=== PATIENT | male | born 1970 | race Caucasian/White ===

== ENCOUNTER 2017-07-20 16:45 | Emergency (ER) | payer BC, OTHER ==
[~2017-07-20] VITALS: Ht 172.7 cm; Wt 101.3 kg
[2017-07-20 16:47] VITALS: TEMP 36.3; Ht 172.7 cm; Wt 101.3 kg
[2017-07-20] MEDS ORDERED: PHEN-622 PO (16:55)
[2017-07-20] MEDS ORDERED: LIDOCAINE/EPINEPH/TETRACAINE 1 EA SYR EXT STA (17:04)
--- NOTE | 2017-07-20 17:08 | EMERGENCY ROOM VISIT NOTE ---
ED Visit Note First contact with patient: 16:51 CHIEF COMPLAINT: Facial laceration HISTORY OF PRESENT ILLNESS: This 47-year-old male patient presents emergency department, ambulatory, complaining of a laceration to the forehead. The patient was cutting down trees, and did not realize there was a branch above him. The limb fell several feet, striking him on the anterior forehead. The incident occurred approximately 1 hour ago. There was no loss of consciousness, vomiting, or unusual behavior afterwards. The patient does report some left neck stiffness, but denies any cervical spine pain. No headache, nausea, or blurred vision. There is minimal active bleeding. The patient rates the pain as sharp and 1/10. The patient's last tetanus vaccination was in 2010. REVIEW OF SYSTEMS: A 6 system review of systems was completed with positives and pertinent negatives listed in the HPI. ALLERGIES: None MEDICATIONS: DayQuil PMH: History of Hodgkin's lymphoma, the patient has been in remission for 5 years SOCIAL HISTORY: The patient lives locally with family. He denies drug, alcohol use. He admits to using chewing tobacco, one can every 3 days. PHYSICAL EXAM: Vital Signs: Reviewed Nurse's notes, vital signs stable. GENERAL : This is a 47-year-old white male, in no acute distress, well-developed, well- nourished. NEURO: The patient is alert and oriented to person place and time. No focal neurological defects. EYES: Pupils are round, equal, and react to light. EOMI. EARS: No hemotympanum. NECK: Supple. No cervical spine tenderness. FACE: No facial bone tenderness or mandibular tenderness. The mouth can open fully. The teeth are well aligned. No loose or chipped teeth. SKIN: There is a 3 cm laceration in the vertical plane and the center of the forehead. The edges gape apart with traction. There is minimal active bleeding and no foreign material in the wound. There are no deep structures present. Capillary refill less than two seconds. Normal sensation to light and sharp touch. EMERGENCY DEPARTMENT COURSE: I examined the patient. Verbal consent was obtained to perform the procedure. LET gel was applied to the wound and allowed to sit for approximately 30 minutes. Once the patient was anesthetized, the wound was cleansed with Betadine. The area was sterilely draped. The wound was copiously irrigated under pressure with sterile saline. The wound was explored and was as described above. The laceration was repaired using 11 simple interrupted 6-0 nylon sutures with the wound edges being well approximated. The patient tolerated the procedure well. Hemostasis was achieved. The area was cleaned with sterile saline and dressed with bacitracin ointment. The patient was given Tdap immunization. The patient was discharged home in good condition. I attest that I have personally reviewed the patient's current medication list. Patient was found to have normal blood pressure on screening and does not require follow-up. Differential diagnosis includes laceration, contusion, fracture, ICH, concussion , closed head injury, neurovascular compromise, foreign body, assault, and others DIAGNOSIS: Facial laceration Problem List Medical Problems: (1) Hodgkin lymphoma Status: Resolved Current/Historical Medications Scheduled PRN [id number]-Lp-Mu W/ Apap (Vicks Dayquil Severe Cold), 1 DOSE PO DIRECTED PRN for COLD SYMPTOMS Allergies Coded Allergies: No Known Allergies (Unverified , 07/20/17) Vital Signs Date Time Temp Pulse Resp B/P (MAP) Pulse Ox O2 Delivery O2 Flow Rate FiO2 07/20/17 18:38 68 20 135/90 98 07/20/17 16:47 36.3 87 18 135/90 97 Room Air Medications Administered Medications (Trade) Dose Ordered Sig/Eulalia Route Start Time Stop Time Status Last Admin Dose Admin Tetracaine/ Epinephrine/ Lidocaine (L.e.t. Gel 4%/ 1:100/0.5%) 1 ea UD STAT EXT 07/20/17 17:04 07/20/17 17:06 DC 07/20/17 17:14 1 EA Diphtheria/ Pertussis/Tetanus Vacc (Adacel Inj) 0.5 ml ONCE ONCE IM. 07/20/17 17:15 07/20/17 17:16 DC 07/20/17 17:14 0.5 ML Departure Information Impression Primary Impression: Laceration of forehead Dispostion Home / Self-Care Condition GOOD Patient Instructions ED Laceration Facial Sutr Tape, [facility] Additional Instructions You have received 11 sutures on your forehead. These sutures are NOT dissolvable and WILL need to be removed by a health care provider in 5-7 days. You can return to the Emergency Department or contact your Primary Care Provider to have the sutures removed. Proper wound care is essential for adequate wound healing and infection prevention. You can shower and clean the wound with soap and water. Do not scour over the wound, pat dry with a towel. Do not submerse the wound (i.e. bathe or dish wash) until the sutures have been removed. You can use an antibiotic ointment with a dressing over the wound for the next 3-4 days. After this time you may leave the wound dry and open to the air. If crust develops over the wound you can use a Q-tip to apply a 1:1 peroxide:water solution to clean the wound. Look for signs of infection of the wound including: increased pain, swelling, foul discharge, streaking, or increased temperature. If any of these are noticed you should return to the Emergency Department for further assessment and treatment. As with any laceration you may have received nerve damage to the surrounding tissues. This damage may or may not be permanent. You should keep the area covered with sunscreen for the first 6 months to 1 year when at risk for exposure to help minimize scarring. You can also use scar reducing creams or Vitamin E oil to help minimize scarring. For pain control, you can use the following hasl-llc-cootihc medicines (if >12 yo): Ibuprofen(Motrin, Advil) may be used for fever or pain. Use 600mg every six hours as needed. Take with food. Avoid using more than 2400mg in a 24 hour period. Do not use 2400mg per day for more than three consecutive days without physician direction. Prolonged inappropriate use can lead to stomach upset or ulcers. (AND/OR) Acetaminophen(Tylenol) may be used for fever or pain. Use 1000mg every six hours as needed. Avoid using more than 3000mg in a 24 hour period. Return to the emergency department if your symptoms worsen despite treatment course outlined above. Problem Qualifiers Primary Impression: Laceration of forehead Encounter type: initial encounter Qualified Codes: S01.81XA - Laceration without foreign body of other part of head, initial encounter
[2017-07-20] MEDS ORDERED: DIPHTHERIA/TETANUS/PERTUSSIS 0.5 ML SYR/VIAL IM. ONE (17:15)
[2017-07-20 18:38] VITALS: BP 135/90; PULSE 68; O2SAT 98
== END 2017-07-20 18:40 | disposition home or self-care (01) ==
LOC: C.EDB 16:46 → C.EDD 18:40
DX: S01.81XA Laceration without foreign body of other part of head, initial encounter (principal); W20.8XXA Other cause of strike by thrown, projected or falling object, initial encounter; Y93.H9 Activity, other involving exterior property and land maintenance, building and construction; Z23 Encounter for immunization; F17.220 Nicotine dependence, chewing tobacco, uncomplicated; Z85.89 Personal history of malignant neoplasm of other organs and systems